=== PATIENT | female | born 1970 | race Two or more races ===

== ENCOUNTER 2021-12-03 17:16 | Emergency (ER) | payer MEDICAID ==
--- NOTE | 2021-12-03 18:29 | ED Physician Documentation ---
History of Present Illness - Stated complaint Stated Complaint: FALL,LEGS SWOLLEN,RED - Chief complaint Chief Complaint: Ext Problem - Additonal information Additional information: 51-year-old female presents emergency department for evaluation of worsening left lower extremity swelling and erythema. She had a fall off a ladder about 1 week ago onto hard ground and gravel. She has fairly extensive abrasions to both of her knees as well as the anterior ortiz. She has been ambulatory. Did not strike her head. Is not anticoagulated. However over the last 48 hours she has had progressive swelling of this left leg as well as erythema surrounding the abrasions. No fevers. She is a diabetic. 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 HEENT: Tonsil/Adenoidectomy - Present Medications Home Medications: Ambulatory Orders Medication Instructions Recorded Confirmed cephALEXin [Keflex] 500 mg PO Q6H #28 cap 12/03/21 - Allergies Allergies/Adverse Reactions: Allergies Allergy/AdvReac Type Severity Reaction Status Date / Time No Known Drug Allergies Allergy Verified 12/03/21 17:26 - Social History Does the pt smoke?: No Smoking Status: Never smoker Does the pt drink ETOH?: Yes Does the pt have substance abuse?: No PD ED PE EXPANDED - General General: Alert, No acute distress, Other (Morbidly obese) - Cardiac Cardiac: Regular Rate, Radial strong equal, Pedal strong equal, Cap refill < 2 sec - Respiratory Respiratory: Clear to ausultation vanna. No: Distress - Abdomen Abdomen: Normal Bowel sounds - Extremities Extremities: Left leg (Extensive abrasions to the anterior knee and ortiz. Surrounding erythema and induration without drainage.), Pedal edema L (Pitting edema to the left foot. No posterior calf tenderness.) Results - Vitals Vitals: Vital Signs - 24 hr 12/03/21 17:21 Temperature 36.1 C L Heart Rate 89 Respiratory 18 Rate Blood Pressure 149/80 H O2 Saturation 98 Oxygen O2 Source Room air - Labs Labs: Laboratory Tests 12/03/21 12/03/21 18:31 18:31 WBC 5.1 RBC 4.38 Hgb 12.4 Hct 39.2 MCV 89.5 MCH 28.3 MCHC 31.6 L RDW 12.8 Plt Count 208 MPV 9.2 Neut # (Auto) 2.8 Lymph # (Auto) 1.9 [place] # (Auto) 0.3 Eos # (Auto) 0.1 Baso # (Auto) 0.0 Absolute Nucleated RBC 0.00 Nucleated RBC % 0.0 Sodium 139 Potassium 3.7 Chloride 99 L Carbon Dioxide 32 Anion Gap 8.0 BUN 25 H Creatinine 0.7 Estimated GFR (MDRD) 88 L Glucose 200 H Calcium 9.3 - Rads (name of study) left leg dvt Radiology: Final report received (Negative for acute paco thrombus) PD MEDICAL DECISION MAKING - ED course Complexity details: reviewed results, re-evaluated patient, considered differential, d/w patient ED course: 51-year-old female presents to the emergency department for evaluation of Pain and swelling to the left foot as well as erythema around deep abrasions that she sustained 1 week ago after fall from a ladder. She is ambulatory without a limp. The deep abrasions however have subsequently developed a cellulitis. She is a diabetic but has no fevers. Screening CBC shows no leukocytosis. Ultrasound DVT was negative for thrombus which was obtained given the left leg swelling. Will be started on cephalexin. Recommend antibiotic ointment to the abrasions. Follow-up with PCP emergent return precautions discussed Departure - Departure Disposition: 01 Home, Self Care Clinical Impression: Left leg cellulitis Condition: Stable Record reviewed to determine appropriate education?: Yes Prescriptions: cephALEXin [Keflex] 500 mg PO Q6H #28 cap Comments: Simona you were seen today because you have deep abrasions to your legs after a fall. You have developed a superficial cellulitis around the wounds on your left leg. I recommend that you place any antibiotic ointment such as bacitracin or Neosporin over the abrasions. But to help treat the infection I have starte d you on cephalexin. You take this 4 times a day. This prescription was sent to the [facility] in [place]. It will take a few weeks for these wounds to heal. If despite taking the antibiotics and using antibiotic ointment you are having worsening symptoms then please return to the ER. Your screening labs and ultrasound today did not show any worrisome findings or a blood clot
[2021-12-03 18:38] LABS: BASOPHILS % (AUTO) 0.4 %; EOSINOPHILS # (AUTO) 0.1 10^3/uL (0.0-0.7); EOSINOPHILS % (AUTO) 2.7 %; HCT - HEMATOCRIT 39.2 % (37.0-47.0); HGB - HEMOGLOBIN 12.4 g/dL (12.0-16.0); LYMPHOCYTES # (AUTO) 1.9 10^3/uL (1.5-3.5); LYMPHOCYTES % (AUTO) 36.6 %; MEAN CORPUSCULAR HEMOGLOBIN 28.3 pg (27.0-31.0); MEAN CORPUSCULAR HGB CONC 31.6 g/dL (32.0-36.0); MEAN CORPUSCULAR VOLUME 89.5 fL (81.0-99.0); MEAN PLATELET VOLUME 9.2 fL (7.9-10.8); MONOCYTES # (AUTO) 0.3 10^3/uL (0.0-1.0); MONOCYTES % (AUTO) 6.2 %; NEUTROPHILS # (AUTO) 2.8 10^3/uL (1.5-6.6); NEUTROPHILS % (AUTO) 53.9 %; PLT - PLATELET COUNT 208 10^3/uL (130-450); RED BLOOD COUNT 4.38 10^6/uL (4.20-5.40); RED CELL DISTRIBUTION WIDTH 12.8 % (12.0-15.0); WHITE BLOOD COUNT 5.1 x10^3/uL (4.8-10.8)
[2021-12-03 18:48] LABS: CALCIUM 9.3 mg/dL (8.5-10.3); CREATININE 0.7 mg/dL (0.4-1.0); POTASSIUM 3.7 mmol/L (3.5-5.0)
[2021-12-03 20:37] VITALS: BP 143/74
--- NOTE | 2021-12-03 21:22 | Ultrasound Report ---
REVISED: THIS REPORT WAS ORIGINALLY SIGNED ON 12/03/2021 @ 8:21 PM. THE RECORD WAS ACCESSED TO CORRECT LATERALITY OF EXAM ON 12/07/2021. PROCEDURE: Duplex Ext Veins Left INDICATIONS: left leg swelling TECHNIQUE: Real-time imaging, as well as color and pulse Doppler interrogation, were performed of the lower extremity deep veins from the inguinal ligament to the popliteal fossa. COMPARISON: None. FINDINGS: The deep veins are normally compressible, and free of intraluminal thrombus. Color and pulse Doppler demonstrate normal phasic intraluminal flow. There is normal augmentation response to distal compression maneuver. The calf veins are not well seen, secondary to body habitus. IMPRESSION: No findings of deep venous thrombosis are seen. Note: Concordant preliminary findings given by the starch cooker upon the completion of the examination to Donna Fatima. Reviewed by: Mani Harper MD on 12/03/2021 8:21 PM GIOVANNI Approved by: Mani Harper MD on 12/03/2021 8:21 PM GIOVANNI Station ID: [id number]
== END 2021-12-03 20:40 | disposition home or self-care (01) ==
LOC: ED 17:16
DX: L03.116 Cellulitis of left lower limb (principal); S80.212A Abrasion, left knee, initial encounter; S80.211A Abrasion, right knee, initial encounter; W11.XXXA Fall on and from ladder, initial encounter; E11.9 Type 2 diabetes mellitus without complications
CPT/HCPCS: 36415; 80048; 85025; 99282; 99284

== ENCOUNTER 2022-04-07 08:00 | Outpatient (CLI) | payer MEDICAID | END 2022-04-07 23:59 | disposition home or self-care (01) | LOC: LAB.N 08:00 | PROVIDERS: ATTEND Registered Nurse | DX: R30.0 Dysuria (principal) | CPT/HCPCS: 87077; 87086; 87181 ==

== ENCOUNTER 2022-07-28 13:01 | Outpatient (CLI) | payer MEDICAID ==
--- NOTE | 2022-07-28 15:24 | XRAY Report ---
PROCEDURE: Knee 3 View RT INDICATIONS: KNEE PAIN TECHNIQUE: 3 views of the right knee(s) were acquired. COMPARISON: None. FINDINGS: Bones: No fractures or dislocations. No suspicious bony lesions. Soft tissues: No joint effusion. No suspicious soft tissue calcifications. IMPRESSION: Unremarkable right knee radiographs Reviewed by: Nitish Nix MD on 07/28/2022 2:23 PM [place] Approved by: Nitish Nix MD on 07/28/2022 2:23 PM [place] Station ID: [id number]
== END 2022-07-28 13:02 | disposition home or self-care (01) ==
LOC: DI 13:01
PROVIDERS: ATTEND Internal Medicine
DX: M25.561 Pain in right knee (principal)

== ENCOUNTER 2022-11-09 10:18 | Outpatient (CLI) | payer MEDICAID ==
--- NOTE | 2022-11-15 12:53 | Mammography Report ---
BILATERAL DIGITAL SCREENING MAMMOGRAM 3D/2D: 11/09/2022 CLINICAL: Routine screening. No prior exams were available for comparison. There are scattered areas of fibroglandular density in both breasts (category b / 25%-50% glandular t issue). No significant masses, calcifications, or other findings are seen in either breast. IMPRESSION: NEGATIVE There is no mammographic evidence of malignancy. A 1 year screening mammogram is recommended. Based on the Tyrer Cuzick model (a risk assessment model) the patients lifetime risk is 15.2% and he r 10 year risk is 4.2%. According to the ACR, ACS, and NCCN guidelines, an annual breast MRI exam kee ng with mammogram is recommended if the patients lifetime risk is 20% or greater. This exam was interpreted at Station ID: [id number]. NOTE: For mammograms, a report in lay terms will be sent to the patient. Approximately 15% of breast malignancies will not be visualized mammographically. In the management of a palpable breast mass, a negative mammogram must not discourage biopsy of a clinically suspicious lesion. Electronically Signed By: Alberto swanson/ben:11/14/2022 17:54:08 letter sent: No_Letter ACR BI-RADS Category 1: Negative 3341F PARENCHYMAL PATTERN: (A) - The breast(s) demonstrate(s) scattered fibroglandular densities. BI-RADS CATEGORY: (1) - 1 Mammogram [id number] 1 year screening LATERALITY: (B)
== END 2022-11-09 10:19 | disposition home or self-care (01) ==
LOC: DI 10:18
PROVIDERS: ATTEND Internal Medicine
DX: Z12.31 Encounter for screening mammogram for malignant neoplasm of breast (principal)

== ENCOUNTER 2022-11-09 10:19 | Outpatient (CLI) | payer MEDICAID ==
--- NOTE | 2022-11-09 13:58 | DEXA Report ---
PROCEDURE: Dexa Spine and/or Hip INDICATIONS: POST MENOPAUSAL TECHNIQUE: Dual energy x-ray absorptiometry (DXA) was performed on a [employer] Mobile System. Regions measur ed are the AP Spine, femoral neck, and if needed forearm. COMPARISON: None FINDINGS: Lumbar Spine: Bone Mineral Density 1.133 g/cm/cm,T score -0.4. Normal bone density Left Femoral Neck: Bone Mineral Density 0.977 g/cm/cm, T score -0.4. Normal bone density Left Hip: Bone Mineral Density 1.069 g/cm/cm,T score 0.5. Normal bone density (T score greater or equal to -1.0: NORMAL) (T score from -1.1 to -2.4: OSTEOPENIA) (T score less than or equal to -2.5 to: OSTEOPOROSIS) Impression: By WHO criteria, this patient has normal bone density. Normal bone density of the lumbar spine and the hip. Patients with diagnosis of osteoporosis or osteopenia should have regular bone mineral density assess ment. For those eligible for Medicare, routine testing is allowed once every 2 years. Testing frequ ency can be increased for patients who have rapidly progressing disease or for those who are receivin g medical therapy to restore bone mass. Reviewed by: Alberto Quintero MD on 11/09/2022 1:57 PM PDT Approved by: Alberto Quintero MD on 11/09/2022 1:57 PM PDT Station ID: [id number]
== END 2022-11-09 10:20 | disposition home or self-care (01) ==
LOC: DI 10:19
PROVIDERS: ATTEND Internal Medicine
DX: N95.9 Unspecified menopausal and perimenopausal disorder (principal)

== ENCOUNTER 2022-11-15 15:03 | Outpatient (CLI) | payer MEDICAID | END 2022-11-15 23:59 | disposition short-term general hospital (02) | LOC: EMS 15:03 | DX: R07.89 Other chest pain (principal); R20.0 Anesthesia of skin; R68.84 Jaw pain; M25.512 Pain in left shoulder | CPT/HCPCS: A0425; A0427; A0999 ==

== ENCOUNTER 2023-02-08 19:08 | Emergency (ER) | payer MEDICAID ==
--- NOTE | 2023-02-08 21:50 | XRAY Report ---
PROCEDURE: Toe(s) LT INDICATIONS: stubbed, pain and swelling middle toe TECHNIQUE: 3 views of the third toe(s) acquired. COMPARISON: None FINDINGS: Bones: No fractures or dislocations. No suspicious bony lesions. Soft tissues: No suspicious soft tissue densities. IMPRESSION: No acute bony abnormality. Reviewed by: Amrik Jansen on 02/08/2023 9:49 PM PDT Approved by: Amrik Jansen on 02/08/2023 9:49 PM PDT Station ID: [id number]
--- NOTE | 2023-02-08 22:39 | ED Physician Documentation ---
PD HPI LOWER EXT INJURY - Stated complaint Stated Complaint: L TOE INJ - Chief complaint Chief Complaint: Trauma Ext - History obtained from History obtained from: Patient - Additional information Additional information: The patient comes to the emergency department chief complaint of hitting her left third toe on the edge of the bed while walking. She has noticed pain and swelling in the toe since. This happened yesterday. Patient can walk on it but it hurts. No other injuries or complaints at this time. 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 HEENT: Tonsil/Adenoidectomy - Present Medications Home Medications: Ambulatory Orders Medication Instructions Recorded Confirmed Atorvastatin [Lipitor] 10 mg PO DAILY 02/08/23 02/08/23 Empagliflozin [Jardiance] 25 mg PO DAILY 02/08/23 02/08/23 Gabapentin [Neurontin] 100 mg PO QPM 02/08/23 02/08/23 Liraglutide [Victoza 2-Jonathan] 1.8 mg SUBQ DAILY 02/08/23 02/08/23 Lisinopril [Zestril] 2.5 mg PO 02/08/23 Metformin HCl [Metformin ER 1,000 mg PO BID 02/08/23 02/08/23 Osmotic] Pioglitazone HCl [Actos] 30 mg PO DAILY 02/08/23 02/08/23 - Allergies Allergies/Adverse Reactions: Allergies Allergy/AdvReac Type Severity Reaction Status Date / Time No Known Drug Allergies Allergy Verified 02/08/23 19:10 - Social History Does the pt smoke?: No Smoking Status: Never smoker Does the pt drink ETOH?: Yes Does the pt have substance abuse?: No - Immunizations Immunizations are current?: Yes - POLST Patient has POLST: No PD ED PE NORMAL - Vitals Vital signs reviewed: Yes - General General: Alert and oriented X 3, No acute distress, Well developed/nourished - HEENT HEENT: Atraumatic, Moist mucous membranes - Respiratory Respiratory: No respiratory distress - Derm Derm: Warm and dry, Other (Mild contusion involving left middle toe. No skin breakage.) - Extremities Extremities: No deformity, Other (Mild edema without deformity of left middle toe. No edema or deformity of left foot.) - Neuro Neuro: Alert and oriented X 3 - Psych Psych: Normal mood, Normal affect Results - Vitals Vitals: Oxygen O2 Source Room air - Rads (name of study) X-ray series left toes Relevant Findings:: Final report received, See rad report (Negative) PD Medical Decision Making - ED course Complexity details: reviewed results, re-evaluated patient, considered diffe rential, d/w patient ED course: I discussed with the patient that her x-ray series is negative. We have discussed symptomatic management at home, as well as the usual indications for return. Departure - Departure Disposition: Home, Self Care Clinical Impression: Toe contusion Qualifiers: Encounter type: initial encounter Toe: lesser toe Damage to nail status: without damage Laterality: left Qualified Code(s): S90.122A - Contusion of left lesser toe(s) without damage to nail, initial encounter Sprain of toe Qualifiers: Encounter type: initial encounter Qualified Code(s): S93.509A - Unspecified sprain of unspecified toe(s), initial encounter Condition: Stable Instructions: ED Sprain Toe Comments: Your x-rays look good. Your toe will get better given time. You may use ibuprofen, Tylenol, and ice to help with the symptoms. Please avoid any strenuous activities until the pain and swelling has gone down. Forms: PCP List Discharge Date/Time: 02/08/23 22:49
[2023-02-09 11:00] VITALS: BP 138/70; O2SAT 100
== END 2023-02-08 22:49 | disposition home or self-care (01) ==
LOC: ED 19:08
DX: S93.505A Unspecified sprain of left lesser toe(s), initial encounter (principal); W22.8XXA Striking against or struck by other objects, initial encounter; E11.8 Type 2 diabetes mellitus with unspecified complications; Z79.84 Long term (current) use of oral hypoglycemic drugs
CPT/HCPCS: 73660; 99283

== ENCOUNTER 2023-11-16 08:03 | Emergency (ER) | payer MEDICAID ==
[2023-11-16 09:41] LABS: BILIRUBIN,URINE NEGATIVE (NEGATIVE); GLUCOSE, URINE (UA) >=1000 mg/dL (NEGATIVE); KETONES,URINE (UA) NEGATIVE (NEGATIVE); LEUKOCYTE ESTERASE, URINE NEGATIVE (NEGATIVE); NITRITE,URINE POSITIVE (NEGATIVE); OCCULT BLOOD,URINE NEGATIVE (NEGATIVE); PH,URINE 5.5 PH (5.0-7.5); PROTEIN,URINE NEGATIVE (NEGATIVE); UROBILINOGEN,URINE 1 (NORMAL) E.U./dL (NORMAL)
[2023-11-16 09:50] LABS: CLARITY,URINE SL. CLOUDY (CLEAR)
[2023-11-16 09:51] LABS: SQUAMOUS EPITHELIAL CELL,UR FEW Squamous (<= Few)
--- NOTE | 2023-11-16 09:51 | ED Physician Documentation ---
PD HPI ABD PAIN - Stated complaint Stated Complaint: ,WEAK,SOA - Chief complaint Chief Complaint: Abd Pain - History obtained from History obtained from: Patient - Additional information Additional information: The patient comes to the emergency department chief complaint of suprapubic and urethral pain with urination, as well as pain radiating up through her left lower quadrant and into her left flank. This has been going on for the last few days. The patient is finishing a 1 week prescription of Cipro for UTI and has been getting recurrent UTIs recently. She was just treated a few weeks ago for another UTI but cannot remember which antibiotic she was on that time. The patient denies fevers or chills. No nausea or vomiting. No change in bowel movements. The patient does have a history of a hiatal hernia and has been having some epigastric discomfort with a feeling of fullness in her chest that causes her to feel short of breath. She states this is worse if she is trying to bear down or strain. No other complaints at this time. Dates that her last urinalysis showed nitrites, but the one before that was negative per Dr. Felix, her primary doctor. PD PAST MEDICAL HISTORY - Past Medical History Past Medical History: Yes Endocrine/Autoimmune: Type 2 diabetes - Past Surgical History Past Surgical History: Yes General: Gastric surgery /[facility]: section, Hysterectomy HEENT: Tonsil/Adenoidectomy - Present Medications Home Medications: Ambulatory Orders Medication Instructions Recorded Confirmed Atorvastatin [Lipitor] 10 mg PO DAILY 02/08/23 11/16/23 Empagliflozin [Jardiance] 25 mg PO DAILY 02/08/23 11/16/23 Liraglutide [Victoza 2-Jonathan] 1.8 mg SUBQ DAILY 02/08/23 11/16/23 Lisinopril [Zestril] 2.5 mg PO DAILY 02/08/23 11/16/23 Metformin HCl [Metformin ER 1,000 mg PO BID 02/08/23 11/16/23 Osmotic] Pioglitazone HCl [Actos] 30 mg PO DAILY 02/08/23 11/16/23 Sulfamethox/Trimeth 800/160 1 each PO BID #20 tablet 11/16/23 [Bactrim Ds 800/160] - Allergies Allergies/Adverse Reactions: Allergies Allergy/AdvReac Type Severity Reaction Status Date / Time No Known Drug Allergies Allergy Verified 11/16/23 08:13 - Social History Does the pt smoke?: No Smoking Status: Never smoker Does the pt drink ETOH?: Yes Does the pt have substance abuse?: No - Immunizations Immunizations are current?: Yes - POLST Patient has POLST: No PD ED PE NORMAL - Vitals Vital signs reviewed: Yes - General General: Alert and oriented X 3, No acute distress, Well developed/nourished - HEENT HEENT: Atraumatic, PERRL, EOMI, Moist mucous membranes - Neck Neck: Supple, no meningeal sign - Cardiac Cardiac: RRR, No murmur - Respiratory Respiratory: No respiratory distress, Clear bilaterally - Abdomen Abdomen: Soft, Non distended, Other (Moderate tenderness suprapubic region and left lower quadrant with mild left flank tenderness. No rebound or guarding.) - Back Back: No CVA TTP, No spinal TTP - Derm Derm: Normal color, Warm and dry, No rash - Extremities Extremities: No deformity, No edema - Neuro Neuro: Alert and oriented X 3 - Psych Psych: Normal mood, Normal affect Results - Vitals Vitals: Vital Signs - 24 hr 11/16/23 11/16/23 11/16/23 08:06 10:13 11:44 Temperature 36.0 C L Heart Rate 84 68 65 Respiratory 15 16 11 L Rate Blood Pressure 125/49 L 122/65 124/69 O2 Saturation 100 100 99 11/16/23 12:35 Temperature 36.1 C L Heart Rate 70 Respiratory 19 Rate Blood Pressure 113/70 O2 Saturation 99 Oxygen O2 Source Room air - Labs Labs: Laboratory Tests 11/16/23 11/16/23 11/16/23 09:24 09:55 09:55 WBC 5.9 RBC 5.05 Hgb 13.8 Hct 43.8 MCV 86.7 MCH 27.3 MCHC 31.5 L RDW 13.4 Plt Count 199 MPV 9.8 Neut # (Auto) 3.2 Lymph # (Auto) 2.2 [place] # (Auto) 0.3 Eos # (Auto) 0.2 Baso # (Auto) 0.1 Absolute Nucleated RBC 0.00 Nucleated RBC % 0.0 Sodium 138 Potassium 3.9 Chloride 104 Carbon Dioxide 29 Anion Gap 5.0 L BUN 25 H Creatinine 0.8 Estimated GFR (MDRD) 75 L Glucose 109 H Calcium 9.7 Total Bilirubin 0.8 AST 15 ALT 11 Alkaline Phosphatase 54 Total Protein 7.2 Albumin 4.1 Globulin 3.1 Albumin/Globulin Ratio 1.3 Lipase 69 Urine Color YELLOW Urine Clarity SL. CLOUDY Urine pH 5.5 Ur Specific [place] >=1.030 H Urine Protein NEGATIVE Urine Glucose (UA) >=1000 H Urine Ketones NEGATIVE Urine Occult Blood NEGATIVE Urine Nitrite POSITIVE H Urine Bilirubin NEGATIVE Urine Urobilinogen 1 (NORMAL) Ur Leukocyte Esterase NEGATIVE Urine RBC 6-10 H Urine WBC 4-5 Ur Squamous Epith Cells FEW Squamous Urine Bacteria Moderate H Urine Mucus Few Strands Ur Microscopic Review INDICATED Urine Culture Comments INDICATED - Rads (name of study) CT abd/pelvis Relevant Findings:: Final report received, See rad report (Some colonic stool; air noted in bladder. No other acute findings.) PD Medical Decision Making - ED course Complexity details: reviewed results, re-evaluated patient, considered differential, d/w patient ED course: The patient was worked up with labs, urinalysis, and CT scan of the abdomen and pelvis.Laboratory studies were unremarkable. Urinalysis did come back strongly positive for infection. CT scan showed a small amount of air in the bladder and also some colonic stool with significant volume but otherwise, no other findings. I discussed with the patient that we could switch her over to a different antibiotic and do a somewhat longer course of 10 days and see if this gets for the symptoms. I have also strongly advised her to follow-up with urology since this seems to be a recurrent issue that she is having. The patient has expressed agreement. I will start her on a course of Bactrim as she has already been on Cipro and is almost done with the course does not feel like it has improved things at all. We have discussed the usual indications for return. Departure - Departure Disposition: 01 Home, Self Care Clinical Impression: UTI (urinary tract infection) Qualifiers: Urinary tract infection type: acute cystitis Hematuria presence: without hematuria Qualified Code(s): N30.00 - Acute cystitis without hematuria Abdominal pain Qualifiers: Abdominal location: lower abdomen, unspecified Qualified Code(s): R10.30 - Lower abdominal pain, unspecified Condition: Stable Instructions: ED Abdominal Pain Female Non-Specific Abdominal Pain, ED UTI Cystitis Female Follow-Up: Ryder Torres MD [Provider Admit Priv/Credential] - Prescriptions: Sulfamethox/Trimeth 800/160 [Bactrim Ds 800/160] 1 each PO BID #20 tablet Comments: Your laboratory studies overall look good today, but your urine does still show evidence of infection. Your CT scan shows some constipation and some air in your urine but otherwise negative. It is not clear exactly why you keep getting the recurrent urinary tract infections, but it would be a good idea for you to follow-up with urology for further clarity and evaluation. For now, we will switch her antibiotics. A prescription for this has been electronically transmitted to the [facility] pharmacy in [place]. Please pick these up today and begin taking them immediately. Please call and schedule the next available appointments to see your primary doctor and the urologist. Forms: PCP List Discharge Date/Time: 11/16/23 12:42
[2023-11-16 09:52] LABS: BACTERIA,URINE Moderate /HPF (None Seen); MUCUS,URINE Few Strands
[2023-11-16] MEDS ORDERED: iohexoL-300 100 ML VIAL ONE (10:05)
[2023-11-16 10:10] LABS: BASOPHILS # (AUTO) 0.1 10^3/uL (0.0-0.1); BASOPHILS % (AUTO) 0.8 %; EOSINOPHILS # (AUTO) 0.2 10^3/uL (0.0-0.7); HCT - HEMATOCRIT 43.8 % (37.0-47.0); HGB - HEMOGLOBIN 13.8 g/dL (12.0-16.0); LYMPHOCYTES # (AUTO) 2.2 10^3/uL (1.5-3.5); LYMPHOCYTES % (AUTO) 37.3 %; MEAN CORPUSCULAR HEMOGLOBIN 27.3 pg (27.0-31.0); MEAN CORPUSCULAR HGB CONC 31.5 g/dL (32.0-36.0); MEAN CORPUSCULAR VOLUME 86.7 fL (81.0-99.0); MEAN PLATELET VOLUME 9.8 fL (7.9-10.8); MONOCYTES # (AUTO) 0.3 10^3/uL (0.0-1.0); MONOCYTES % (AUTO) 4.9 %; NEUTROPHILS # (AUTO) 3.2 10^3/uL (1.5-6.6); NEUTROPHILS % (AUTO) 53.8 %; PLT - PLATELET COUNT 199 10^3/uL (130-450); RED BLOOD COUNT 5.05 10^6/uL (4.20-5.40); RED CELL DISTRIBUTION WIDTH 13.4 % (12.0-15.0); WHITE BLOOD COUNT 5.9 x10^3/uL (4.8-10.8)
[2023-11-16 10:13] LABS: ALBUMIN 4.1 g/dL (3.2-5.5); ALBUMIN/GLOBULIN RATIO 1.3 (1.0-2.2); BILIRUBIN,TOTAL 0.8 mg/dL (0.2-1.0); CALCIUM 9.7 mg/dL (8.5-10.3); CREATININE 0.8 mg/dL (0.6-1.3); POTASSIUM 3.9 mmol/L (3.5-4.5); TOTAL PROTEIN 7.2 g/dL (6.4-8.9)
[2023-11-16] MEDS: iohexoL-300 100 ML VIAL IVP ONE (11:21)
[2023-11-16 11:48] VITALS: O2SAT 99
--- NOTE | 2023-11-16 11:55 | CT Report ---
PROCEDURE: Abdomen/Pelvis W INDICATIONS: LLQ pain CONTRAST: Omni 300 100ml TECHNIQUE: After the administration of intravenous contrast, a CT scan of the abdomen and pelvis was performed. Images were recorded and evaluated at appropriate window settings. Reformats: coronal and sagittal. F or radiation dose reduction, the following was used: automated exposure control, adjustment of mA and /or kV according to patient size. COMPARISON: None. FINDINGS: Image quality: Diagnostic. Lower chest: Small hiatal hernia. Liver: No solid mass. Gallbladder: No radiopaque stones or wall thickening. Biliary tree: No intrahepatic or extrahepatic dilation, accounting for age. Spleen: No splenomegaly. Pancreas: No pancreatic ductal dilation. Adrenals: No adrenal nodule. Kidneys and ureters: No hydronephrosis. No renal cystic lesion which requires follow up. No solid mas s. Stomach, bowel and peritoneum: No gastric or small bowel dilation. No abnormal wall thickening. No pa thologic free fluid. No significant diverticular disease. Moderate colonic stool load. Normal appendi x. Lymph nodes: No central or retroperitoneal adenopathy. Vessels: No infrarenal aortic aneurysm. Patent portal vein. PELVIS Reproductive organs: Unremarkable. Bladder: Gas within the urinary bladder. Pelvic lymph nodes: No pelvic adenopathy by size criteria. Bones: No aggressive osseous abnormality. Degenerative changes of the spine. Other: No significant ventral or inguinal hernia. IMPRESSION: Gas within the urinary bladder, which may be due to infection or recent instrumentation. No CT eviden ce of pyelonephritis. Moderate colonic stool load. Reviewed by: Amrik Jansen MD on 11/16/2023 11:53 AM PDT Approved by: Amrik Jansen MD on 11/16/2023 11:53 AM PDT Station ID: [id number]
[2023-11-16 12:38] VITALS: BP 113/70
== END 2023-11-16 12:42 | disposition home or self-care (01) ==
LOC: ED 08:03
DX: N30.00 Acute cystitis without hematuria (principal); R10.30 Lower abdominal pain, unspecified; Z87.440 Personal history of urinary (tract) infections; E11.9 Type 2 diabetes mellitus without complications; Z79.899 Other long term (current) drug therapy; Z79.84 Long term (current) use of oral hypoglycemic drugs
CPT/HCPCS: 36415; 74177; 80053; 81001; 83690; 85025; 87077; 87086; 87181; 99284; Q9967; 81003

== ENCOUNTER 2024-01-31 21:24 | Emergency (ER) | payer MEDICAID ==
[2024-01-31] MEDS: DEXAMETHASONE 10 MG/ML VIAL IM STA (22:36)
--- NOTE | 2024-01-31 22:38 | ED Physician Documentation ---
PD HPI SKIN - Stated complaint Stated Complaint: RASH - Chief complaint Chief Complaint: Wound - History obtained from History obtained from: Patient - Additional information Additional information: The patient comes to the emergency department with chief complaint of mosquito bites and bruising. She states she was in [place] and about 3 days ago, she and her family all were bitten by mosquitoes. She states her bites were mostly up on her lateral bilateral thighs. She states she is allergic to mosquito bites and that she always gets big red puffy areas. However, after scratching a lot she noticed bruising around the edges of the erythematous areas and she was concerned because this is never happened before. She states she stopped scratching and just has been slapping the areas at the edge. She tried taking Benadryl and this did not help. She denies any fevers or chills. No further spreading of the redness. No other complaints at this time. 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 : None HEENT: None Psych: None Musculoskeletal: None Derm: None - Past Surgical History Past Surgical History: Yes General: Gastric surgery /PESTICIDE CONTROL INSPECTOR: section, Hysterectomy HEENT: Tonsil/Adenoidectomy - Present Medications Home Medications: Ambulatory Orders Medication Instructions Recorded Confirmed Atorvastatin [Lipitor] 10 mg PO DAILY 02/08/23 11/16/23 Empagliflozin [Jardiance] 25 mg PO DAILY 02/08/23 11/16/23 Liraglutide [Victoza 2-Jonathan] 1.8 mg SUBQ DAILY 02/08/23 11/16/23 Lisinopril [Zestril] 2.5 mg PO DAILY 02/08/23 11/16/23 Metformin HCl [Metformin ER 1,000 mg PO BID 02/08/23 11/16/23 Osmotic] Pioglitazone HCl [Actos] 30 mg PO DAILY 02/08/23 11/16/23 Sulfamethox/Trimeth 800/160 1 each PO BID #20 tablet 11/16/23 [Bactrim Ds 800/160] predniSONE [Deltasone] 60 mg PO DAILY 3 Days #9 tablet 01/31/24 - Allergies Allergies/Adverse Reactions: Allergies Allergy/AdvReac Type Severity Reaction Status Date / Time No Known Drug Allergies Allergy Verified 01/31/24 21:32 - Social History Does the pt smoke?: No Smoking Status: Never smoker Does the pt drink ETOH?: Yes Does the pt have substance abuse?: No - Immunizations Immunizations are current?: Yes - POLST Patient has POLST: No PD ED PE NORMAL - Vitals Vital signs reviewed: Yes - General General: Alert and oriented X 3, No acute distress, Well developed/nourished - HEENT HEENT: Atraumatic, EOMI, Moist mucous membranes - Neck Neck: Supple, no meningeal sign - Respiratory Respiratory: No respiratory distress - Derm Derm: Warm and dry, Other (Scattered bites with localized inflammatory reactions over bilateral superolateral thighs. Scattered semiannular contusions around the edges of reactive areas.) - Extremities Extremities: No deformity - Neuro Neuro: Alert and oriented X 3 - Psych Psych: Normal mood, Normal affect Results - Vitals Vitals: Vital Signs - 24 hr 01/31/24 21:26 Temperature 36.2 C L Heart Rate 99 Respiratory 15 Rate Blood Pressure 141/62 H O2 Saturation 100 Oxygen O2 Source Room air PD Medical Decision Making - ED course Complexity details: considered differential, d/w patient ED course: I discussed with the patient that the bites appear to have localized reactions but this does not appear cellulitic at this time. I am not entirely certain why she has bruised, but I suspect it is probably from vigorous scratching. At this point in time, I do not find any evidence of a more serious process going on and the patient otherwise feels well. I have added a steroid to her regimen and we have discussed other modes of symptomatic management at home. We have also discussed the usual indications for return. Departure - Departure Disposition: 01 Home, Self Care Clinical Impression: Insect bite of multiple sites of lower extremity with local reaction Qualifiers: Encounter type: initial encounter Laterality: unspecified laterality Qualified Code(s): S80.869A - Insect bite (nonvenomous), unspecified lower leg, initial encounter; W57.XXXA - Bitten or stung by nonvenomous insect and other nonvenomous arthropods, initial encounter Condition: Stable Instructions: ED Bite Sting Insect Local Allergic React Prescriptions: predniSONE [Deltasone] 60 mg PO DAILY 3 Days #9 tablet Comments: At this point in time, the swollen areas appear to be reaction to the bites and not infection. I am not sure exactly why you have bruising this timeit might just be from extra inflammation in the local trauma of scratching. There is no evidence of a more serious process going on, however, and most likely these reactions will just blow over on their own. You may continue to take Benadryl if you would like and I have also sent a prescription for a steroid to the [facility] pharmacy in [place]. You may pick this up tomorrow morning and start it then. Sometimes ice packs are also helpful on areas that are persistently itchy.
[2024-01-31 22:51] VITALS: BP 144/68; O2SAT 99
== END 2024-01-31 22:47 | disposition home or self-care (01) ==
LOC: ED 21:24
DX: S70.362A Insect bite (nonvenomous), left thigh, initial encounter (principal); S70.361A Insect bite (nonvenomous), right thigh, initial encounter; W57.XXXA Bitten or stung by nonvenomous insect and other nonvenomous arthropods, initial encounter; E11.9 Type 2 diabetes mellitus without complications; Z79.84 Long term (current) use of oral hypoglycemic drugs; E78.00 Pure hypercholesterolemia, unspecified; Z79.85 Long-term (current) use of injectable non-insulin antidiabetic drugs
CPT/HCPCS: 96372; 99283

== ENCOUNTER 2024-02-28 19:57 | Emergency (ER) | payer MEDICAID ==
--- NOTE | 2024-02-28 20:54 | ED Physician Documentation ---
History of Present Illness - Stated complaint Stated Complaint: ARREOLA/SWOLLEN FEET - Chief complaint Chief Complaint: Ext Problem - Additonal information Additional information: Patient is a 53-year-old female with past medical history of type 2 diabetes on insulin presents to the emergency department with bilateral lower leg swelling. She notes symptoms started a few days ago after she recently started on new insulin glargine and insulin lispro. She notes this is her first time on insulin for diabetes. She is concerned that is causing her lower leg swelling as she read it in the adverse reactions of the medication. She denies any chest pain no shortness of breath associated to symptoms but did have a headache today that caused her to sleep from 8 AM to 3 PM this afternoon. She denies any dizziness lightheadedness nausea vomiting vision changes. She is not on any diuretics at home. No history of heart failure. She has been wearing her diabetic socks but does not have compression socks at home. 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: section, Hysterectomy HEENT: Tonsil/Adenoidectomy - Present Medications Home Medications: Ambulatory Orders Medication Instructions Recorded Confirmed Atorvastatin [Lipitor] 10 mg PO DAILY 02/08/23 11/16/23 Empagliflozin [Jardiance] 25 mg PO DAILY 02/08/23 11/16/23 Liraglutide [Victoza 2-Jonathan] 1.8 mg SUBQ DAILY 02/08/23 11/16/23 Lisinopril [Zestril] 2.5 mg PO DAILY 02/08/23 11/16/23 Metformin HCl [Metformin ER 1,000 mg PO BID 02/08/23 11/16/23 Osmotic] Pioglitazone HCl [Actos] 30 mg PO DAILY 02/08/23 11/16/23 Sulfamethox/Trimeth 800/160 1 each PO BID #20 tablet 11/16/23 [Bactrim Ds 800/160] predniSONE [Deltasone] 60 mg PO DAILY 3 Days #9 tablet 01/31/24 Compression Socks, Medium 1 each MC DAILY #2 each 02/28/24 [Compression Socks] - Allergies Allergies/Adverse Reactions: Allergies Allergy/AdvReac Type Severity Reaction Status Date / Time No Known Drug Allergies Allergy Verified 02/28/24 20:43 - Social History Does the pt smoke?: No Smoking Status: Never smoker Does the pt drink ETOH?: Yes Does the pt have substance abuse?: No - Immunizations Immunizations are current?: Yes - POLST Patient has POLST: No PD ED PE NORMAL - General General: Alert and oriented X 3 - HEENT HEENT: Atraumatic - Neck Neck: Supple, no meningeal sign - Cardiac Cardiac: RRR, No murmur, No gallop, No rub - Respiratory Respiratory: No respiratory distress, Clear bilaterally - Abdomen Abdomen: Normal bowel sounds - Back Back: No CVA TTP - Derm Derm: Normal color, Warm and dry, No rash - Extremities Extremities: No deformity, No tenderness to palpate Results - Vitals Vitals: Vital Signs - 24 hr 02/28/24 20:37 Temperature 36.1 C L Heart Rate 74 Respiratory 16 Rate Blood Pressure 159/80 H O2 Saturation 99 Oxygen O2 Source Room air - Labs Labs: Laboratory Tests 02/28/24 02/28/24 02/28/24 21:20 21:20 21:20 WBC 5.9 RBC 4.40 Hgb 12.3 Hct 40.2 MCV 91.4 MCH 28.0 MCHC 30.6 L RDW 14.5 Plt Count 204 MPV 9.6 Neut # (Auto) 3.5 Lymph # (Auto) 1.9 [place] # (Auto) 0.4 Eos # (Auto) 0.2 Baso # (Auto) 0.1 Absolute Nucleated RBC 0.00 Nucleated RBC % 0.0 Sodium 137 Potassium 3.8 Chloride 101 Carbon Dioxide 32 Anion Gap 4.0 L BUN 22 H Creatinine 0.7 Estimated GFR (MDRD) 87 L Glucose 176 H Calcium 9.2 Total Bilirubin 0.7 AST 20 ALT 18 Alkaline Phosphatase 60 B-Natriuretic Peptide 133 H Total Protein 6.5 Albumin 3.7 Globulin 2.8 Albumin/Globulin Ratio 1.3 PD Medical Decision Making - ED course Complexity details: reviewed old records, reviewed results ED course: Patient is a 53-year-old female presenting to the emergency department with bilateral leg swelling. She denies any shortness of breath or chest pain symp toms have been going on for 5 days after she was recently started on insulin lispro and insulin glargine. She has been monitoring her blood sugars and they have been more stable but she is concerned this is a side effect of her medication. She also reports a headache that started today. She took Tylenol for symptoms with no relief. Vital stable on arrival. Physical exam shows 1+ pitting bilateral lower legs. Labs here in the emergency department show slightly elevated BNP at 133 chest x-ray shows no acute findings. Discussed at length with patient her lab findings are reassuring symptoms of lower leg swelling could be secondary to worsening fluid overload versus lymphedema as it is bilateral and no chest x-ray findings. Discussed with patient given reassuring chest x-ray she has no shortness of breath or chest pain we will try compression stockings for now for her symptoms. Instructed patient on strict leg elevation and monitoring for any dizziness lightheadedness chest pain shortness of breath associate with symptoms. Patient will continue to elevate her legs at home and return with any other new or worsening symptoms. Departure - Departure Disposition: 01 Home, Self Care Clinical Impression: Localized swelling of both lower legs Condition: Good Comments: You were seen here in the emergency department for your lower leg swelling. You were asymptomatic otherwise. You should wear compression stockings on both your legs at home for your symptoms. Continue to monitor for any chest pain shortness of breath. Continue with your insulin glargine and insulin lispro at home. Return with any chest pain shortness of breath dizziness lightheadedness persistent headaches or any other new or worsening symptoms. Forms: PCP List
[2024-02-28 21:38] LABS: BASOPHILS # (AUTO) 0.1 10^3/uL (0.0-0.1); BASOPHILS % (AUTO) 0.8 %; EOSINOPHILS # (AUTO) 0.2 10^3/uL (0.0-0.7); EOSINOPHILS % (AUTO) 2.7 %; HCT - HEMATOCRIT 40.2 % (37.0-47.0); HGB - HEMOGLOBIN 12.3 g/dL (12.0-16.0); LYMPHOCYTES # (AUTO) 1.9 10^3/uL (1.5-3.5); LYMPHOCYTES % (AUTO) 31.3 %; MEAN CORPUSCULAR HGB CONC 30.6 g/dL (32.0-36.0); MEAN CORPUSCULAR VOLUME 91.4 fL (81.0-99.0); MEAN PLATELET VOLUME 9.6 fL (7.9-10.8); MONOCYTES # (AUTO) 0.4 10^3/uL (0.0-1.0); MONOCYTES % (AUTO) 5.9 %; NEUTROPHILS # (AUTO) 3.5 10^3/uL (1.5-6.6); NEUTROPHILS % (AUTO) 59.1 %; PLT - PLATELET COUNT 204 10^3/uL (130-450); RED CELL DISTRIBUTION WIDTH 14.5 % (12.0-15.0); WHITE BLOOD COUNT 5.9 x10^3/uL (4.8-10.8)
--- NOTE | 2024-02-28 21:50 | XRAY Report ---
PROCEDURE: Chest 1V INDICATIONS: sob TECHNIQUE: One view of the chest was acquired. COMPARISON: None. FINDINGS: Surgical changes and devices: None. Lungs and pleura: Low lung volumes. No dense airspace disease or pleural effusion Mediastinum: Normal heart size Bones and chest wall: Degenerative changes IMPRESSION: Low lung volumes. No acute abnormality. Limited single view study. Reviewed by: Lisandro Guevara MD on 02/28/2024 9:49 PM PDT Approved by: Lisandro Guevara MD on 02/28/2024 9:49 PM PDT Station ID: [id number]
[2024-02-28 21:55] LABS: ALBUMIN 3.7 g/dL (3.2-5.5); ALBUMIN/GLOBULIN RATIO 1.3 (1.0-2.2); BILIRUBIN,TOTAL 0.7 mg/dL (0.2-1.0); CALCIUM 9.2 mg/dL (8.5-10.3); CREATININE 0.7 mg/dL (0.6-1.3); POTASSIUM 3.8 mmol/L (3.5-4.5); TOTAL PROTEIN 6.5 g/dL (6.4-8.9)
[2024-02-28] MEDS: KETOROLAC 15 MG/ML VIAL IM STA (22:34)
[2024-02-28 22:39] VITALS: BP 144/67; O2SAT 98
== END 2024-02-28 22:44 | disposition home or self-care (01) ==
LOC: ED 19:57
DX: M79.89 Other specified soft tissue disorders (principal); E11.9 Type 2 diabetes mellitus without complications; Z79.4 Long term (current) use of insulin; E78.00 Pure hypercholesterolemia, unspecified; Z79.84 Long term (current) use of oral hypoglycemic drugs; Z79.899 Other long term (current) drug therapy
CPT/HCPCS: 36415; 80053; 83880; 85025; 96372; 99283; 99284

== ENCOUNTER 2024-03-07 18:39 | Outpatient (CLI) | payer MEDICAID ==
--- NOTE | 2024-03-07 19:11 | XRAY Report ---
PROCEDURE: Chest 2V INDICATIONS: ACUTE BRONCHITIS TECHNIQUE: 2 views of the chest were acquired. COMPARISON: None. FINDINGS: Surgical changes and devices: None. Lungs and pleura: No pleural effusions or pneumothorax. Lungs are clear. Mediastinum: Mediastinal contours appear normal. Heart size is normal. Bones and chest wall: No suspicious bony lesions. Overlying soft tissues appear unremarkable. IMPRESSION: No acute cardiopulmonary process. Reviewed by: Rolando Batista MD on 03/07/2024 7:10 PM PDT Approved by: Rolando aBtista MD on 03/07/2024 7:10 PM PDT Station ID: [id number]
== END 2024-03-07 18:40 | disposition home or self-care (01) ==
LOC: DI 18:39
PROVIDERS: ATTEND Internal Medicine
DX: J20.9 Acute bronchitis, unspecified (principal)